=== PATIENT | male | born 1970 | race Caucasian/White ===

== ENCOUNTER 2017-05-18 23:06 | Emergency (ER) | payer MEDICAID ==
[~2017-05-18] VITALS: Ht 180.3 cm; Wt 90.7 kg
[2017-05-18 23:12] VITALS: BP 144/96
== END 2017-05-19 01:35 | disposition left against medical advice (07) ==
LOC: ER 23:09
DX: R05 Cough (principal); R50.9 Fever, unspecified; Z53.21 Procedure and treatment not carried out due to patient leaving prior to being seen by health care provider

== ENCOUNTER 2018-07-08 13:49 | Emergency (ER) | payer MEDICAID ==
[~2018-07-08] VITALS: Ht 182.9 cm; Wt 99.8 kg
[2018-07-08 14:00] VITALS: BP 149/87
== END 2018-07-08 14:29 | disposition left against medical advice (07) ==
LOC: EDBD 13:49 → ER 13:50
DX: R51 Headache (principal); Z53.21 Procedure and treatment not carried out due to patient leaving prior to being seen by health care provider

== ENCOUNTER 2024-03-16 20:20 | Inpatient (IN) | payer MEDICAID ==
[~2024-03-16] VITALS: Ht 180.3 cm; Wt 93.6 kg
--- NOTE | 2024-03-16 20:36 | ED.PDOC ---
SOB-HPI HPI Comments 53 year old male JULI presents to the ED with chief complaint of SOB. Patient reports that he has been smelting "rocks" that contain Palladium in them for the past 2 weeks, noting that the byproduct of doing so is lead and cyanide smoke, noting that he does not have a mask on when performing this. Patient relays that he did not smelt any rocks today, but started to experience SOB with associated muscle locking, making it difficult to stop flexing his hands and arms. EMS states patient's face is very red, diaphoretic and patient had a high BP and heart rate. EMS notes they provided the patient a DuoNeb treatment with improvement of patient's BP and HR, however, patient still had wheezing and had an O2 saturation of 100%. Patient denies any chest pain, cough, dizziness, headache, N/V, or LOC. Chief Complaint: Shortness of Breath Time Seen by MD: 20:31 Reviewed notes: Nurses Notes, Plasterer Maintenance Notes, Medications, Allergies Information Source: Patient, Emergency Med Personnel Mode of Arrival: EMS Severity: Moderate Timing: Hours Duration: Since onset Context: At Rest PE Risk Factors: None History of: None Prehospital treatment: Breathing Tx Modifying Factors: Nothing Past Medical History PAST MEDICAL HISTORY: Anxiety Surgical History: Denies all surgeries Family History Family History: Reviewed,noncontributory to illness Social History Smoker: Cigarettes, Less Than 1 Pack/Day Alcohol: Denies ETOH Use Drugs: Denies Drug Use Lives In: Home Constitutional: denies: chills, diaphoresis, fatigue, fever, malaise, sweats, weakness, others EENTM: denies: blurred vision, double vision, ear bleeding, ear discharge, ear drainage, ear pain, ear ringing, eye pain, eye redness, hearing loss, mouth pain, mouth swelling, nasal discharge, nose bleeding, nose congestion, nose pain, photophobia, tearing, throat pain, throat swelling, voice changes, others Respiratory: reports: shortness of breath; denies: cough, hemoptysis, orthopne a, SOB at rest, SOB with excertion, stridor, wheezing, others Cardiovascular: denies: chest pain, dizzy spells, diaphoresis, Dyspnea on exertion, edema, irregular heart beat, left arm pain, lightheadedness, palpitations, PND, syncope, others Gastrointestinal: denies: abdomen distended, abdominal pain, blood streaked bowels, constipated, diarrhea, dysphagia, difficulty swallowing, hematemesis, melena, nausea, poor appetite, poor fluid intake, rectal bleeding, rectal pain, vomiting, others Genitourinary: denies: burning, dysuria, flank pain, frequency, hematuria, incontinence, penile discharge, penile sore, pain, testicle pain, testicle swelling, urgency, others Neurological: denies: dizziness, fainting, headache, left sided numbness, left sided weakness, numbness, paresthesia, pre-existing deficit, right sided numbness, right sided weakness, seizure, speech problems, tingling, tremors, weakness, others Musculoskeletal: reports: others (Muscle locking); denies: back pain, gout, joint pain, joint swelling, muscle pain, muscle stiffness, neck pain Integumetry: denies: bruises, change in color, change in hair/nails, dryness, laceration, lesions, lumps, rash, wounds, others Allergic/Immunocompromised: denies: Difficulty Healing, Frequent Infections, Hives, Itching, others Hematologic/Lymphatic: denies: anemia, blood clots, easy bleeding, easy bruising, swollen glands, others Endocrine: denies: excessive hunger, excessive sweating, excessive thirst, excessive urination, flushing, intolerance to cold, intolerance to heat, unexplained weight gain, unexplained weight loss, others Psychiatric: denies: anxiety, bipolar disorder, depression, hopeless, panic disorder, schizophrenia, sleepless, suicidal, others All Other Systems: Reviewed and Negative Physical Exam General Appearance: No Apparent Distress, Normal, Other (Flush face) HEENT: Normal ENT Inspection, PERRL/EOMI, Pharynx Normal, TMs Normal Neck: Full Range of Motion, Non-Tender, Normal, Normal Inspection Respiratory: Chest Non-Tender, Lungs Clear, No Accessory Muscle Use, Other (Tachypneic with coarse breath sounds) Cardiovascular: No Edema, No JVD, No Murmur, No Gallop, Normal Peripheral Pu lses, Tachycardia Breast Exam: Deferred Gastrointestinal: No Organomegaly, Non Tender, No Pulsatile Mass, Normal Bowel Sounds, Soft Genitalia: Deferred Pelvic: Deferred Rectal: Deferred Extremities: No calf tenderness, Normal capillary refill, Normal inspection, Normal range of motion, Non-tender, No pedal edema Musculoskeletal : Apperance: Normal Neurologic: Alert, 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 Was a procedure done?: No Differential Dx Differential Diagnosis: Anxiety, Asthma, COPD, Hypertension, Myocardial infarction, Pneumonia, Pharyngitis X-Ray, Labs, Meds, VS Vital Signs Date Time Temp Pulse Resp B/P (MAP) Pulse Ox O2 Delivery O2 Flow Rate FiO2 03/16/24 21:14 109 25 97 Room Air* 0 21 03/16/24 20:36 114 03/16/24 20:34 98.8 109 25 149/95 (113) 97 98.8 03/16/24 20:29 97.3 113 30 153/99 (117) 98 Lab Test 03/16/24 21:57 03/16/24 20:39 03/16/24 20:33 Range/Units Troponin I High Sensitivity Pending < 3 L </=54 ng/L Blood Gas Specimen Type Arterial Blood Gas Sample Site Right radial Blood Gas Patient Temperature 37.0 Arterial Blood Date Drawn [id number] Arterial Blood pH 7.426 7.350-7.450 Arterial Blood Partial Pressure CO2 33.0 L 35.0-48.0 mmHg Arterial Blood Partial Pressure O2 66.7 L 83.0-108.0 mmHg Arterial Blood HCO3 21.2 21.0-28.0 mmol/L Arterial Blood Oxygen Saturation 94.2 94.0-98.0 % Arterial Blood Base Excess -2.2 L -2.0-3.0 mmol/L Arterial Blood Oxyhemoglobin 91.9 L 94.0-98.0 % Arterial Blood Carboxyhemoglobin 2.0 H 0.5-1.5 % Arterial Blood Methemoglobin 0.4 0.0-1.5 % Willy Test Yes Blood Gas Total Hemoglobin 15.30 13.5-17.5 g/dL Blood Gas Modality Room air FiO2 % 21.0 White Blood Count 11.7 H 4.4-10.8 10^3/uL Red Blood Count 5.21 4.5-5.90 10^6/uL Hemoglobin 14.7 13.5-17.5 g/dL Hematocrit 44.2 41.0-53.0 % Mean Corpuscular Volume 84.9 80.0-100.0 fL Mean Corpuscular Hemoglobin 28.3 28.0-32.0 pg Mean Corpuscular Hemoglobin Concent 33.3 32.0-36.0 g/dL Red Cell Distribution Width 13.1 11.8-14.3 % Platelet Count 223 140-450 10^3/uL Mean Platelet Volume 8.4 6.9-10.8 fL Neutrophils (%) (Auto) 37.0-80.0 % Lymphocytes (%) (Auto) 10.0-50.0 % Monocytes (%) (Auto) 0.0-12.0 % Basophils (%) (Auto) 0.0-2.0 % Neutrophils # (Auto) 1.6-8.6 10 ^3/uL Lymphocytes # (Auto) 0.4-5.4 10 ^3/uL Monocytes # (Auto) 0-1.3 10 ^3/uL Differential Total Cells Counted Pending Neutrophils % (Manual) Pending Band Neutrophils % (Manual) Pending Lymphocytes % (Manual) Pending Monocytes % (Manual) Pending Eosinophils % (Manual) Pending Basophils % (Manual) Pending Metamyelocytes % (manual) Pending Myelocytes % (Manual) Pending Promyelocytes % (Manual) Pending Blast Cells % (Manual) Pending Reactive Lymphocytes Pending Platelet Estimate Pending Sodium Level 136 136-145 mmol/L Potassium Level 4.2 3.5-5.1 mmol/L Chloride Level 102 98-107 mmol/L Carbon Dioxide Level 28 20-31 mmol/L Anion Gap 6 5-15 Blood Urea Nitrogen 13 9-23 mg/dL Creatinine 1.11 0.700-1.30 mg/dL Glomerular Filtration Rate Calc 79 >90 mL/min BUN/Creatinine Ratio 11.7 10.0-20.0 Serum Glucose 171 H 74-106 mg/dL Lactic Acid Level 1.9 0.4-2.0 mmol/L Calcium Level 9.6 8.7-10.4 mg/dL Total Bilirubin 0.7 0.2-1.0 mg/dL Aspartate Amino Transferase (AST) 20 13-40 U/L Alanine Aminotransferase (ALT) 28 7-40 U/L Alkaline Phosphatase 108 46-116 U/L B-Type Natriuretic Peptide 7.26 0-100 pg/mL Total Protein 7.1 5.7-8.2 g/dL Albumin 4.3 3.2-4.8 g/dL Chest XR: FINDINGS: Lines and Tubes: None Lungs: Subtle opacity in the right lower lobe. Pleura: No effusion. No pneumothorax. Cardiomediastinal contours: Unremarkable Bones: Unremarkable IMPRESSION: Subtle opacity in the right lower lobe may represent atelectasis or developing pneumonia. Clinical correlation advised. Images Reviewed?: Images reviewed and evaluated by me Time of 1ST Reevaluation: 21:31 Reevaluation 1ST: Unchanged Patient Education/Counseling: Diagnosis, Treatment Family Education/Counseling: No Family Present Departure 1 Departure Time of Disposition: 22:00 (Patient presented with acute shortness of breath concerning for ACS, a COPD Exacerbation, Pneumonia, ACS, CHF, Pneumothorax. Less likely PE, Dissection. Data: 1. I ordered and reviewed the result of at least 3 labs including a CBC, BMP, and Troponin. 2. I independently interpreted the following tests: Chest X-ray shows pneumonia .Risk:This patient has a high risk of morbidity due to further diagnostic testing or treatment and may suffer from respiratory or cardiac etiology . Workup reveals a likely COPD Exacerbation and patient should be admitted for further workup. and possible expert consultation.) Impression: Primary Impression: Right lower lobe pneumonia Qualified Codes: J18.9 - Pneumonia, unspecified organism Additional Impressions: Shortness of breath Inhalation of gaseous substance Qualified Codes: T59.91XA - Toxic effect of unspecified gases, fumes and vapors, accidental (unintentional), initial encounter Chest pain Qualified Codes: R07.89 - Other chest pain Polysubstance abuse Disposition: ADMITTED INPATIENT Admit to: Med Surg Condition: Serious Critical Care Note Critical Care Time?: Yes Critical care comment: Acute shortness of breath Authorized and Performed by: Isaias Baca MD Total critical care time: Approximately 38 minutes Due to a high probability of clinically significant, life threatening deterioration, the patient required my highest level of preparedness to interven e emergently and I personally spent this critical care time directly and personally managing the patient. This critical care time included obtaining a history; examining the patient; pulse oximetry; ordering and review of studies; arranging urgent treatment with development of a management plan; evaluation of patient's response to treatment; frequent reassessment; and, discussions with other providers. This critical care time was performed to assess and manage the high probability of imminent, life-threatening deterioration that could result in multi-organ failure. It was exclusive of separately billable procedures and treating other patients and teaching time. Please see my other sections and the rest of the note for further information on patient assessment and treatment. Stability Stability form required: No Heart Score Heart Score: Heart Score Response (Comments) Value History N/A 0 EKG N/A 0 Age N/A 0 Risk Factors N/A 0 Troponin N/A 0 Total 0 I personally scribed for ISAIAS BACA MD ([email or web address]) on 03/16/24 at 20:36. Elect ronically submitted by Lamberto Lorenzo ([email or web address]). I personally scribed for ISAIAS BACA MD ([email or web address]) on 03/16/24 at 21:20. Elec tronically submitted by Lamberto Lorenzo ([email or web address]). ISAIAS BACA MD Mar 16, 2024 20:36
[2024-03-16 20:43] LABS: Base Excess -2.2 mmol/L (-2.0-3.0)
[2024-03-16] MEDS: CYANOCOBALAMIN (B-12) 1000 MCG/1 ML VIAL IM ONE (20:50)
[2024-03-16 20:52] LABS: Hematocrit 44.2 % (41.0-53.0); Hemoglobin 14.7 g/dL (13.5-17.5); Mean Corpuscular Hemoglobin 28.3 pg (28.0-32.0); Mean Corpuscular Hgb Conc. 33.3 g/dL (32.0-36.0); Mean Corpuscular Volume 84.9 fL (80.0-100.0); Platelet Count (auto) 223 10^3/uL (140-450); Red Blood Cells 5.21 10^6/uL (4.5-5.90); Red Cell Distribution Width 13.1 % (11.8-14.3); White Blood Cell 11.7 10^3/uL (4.4-10.8)
[2024-03-16 20:55] LABS: Basophils % (manual) 0 (0.0-2.0); Blast Cells 0; Metamyelocytes % 0; Myelocytes % 0; Promyelocytes % 0; Reactive Lymphocytes 0
[2024-03-16 21:12] LABS: Alanine Aminotransferase 28 U/L (7-40); Albumin 4.3 g/dL (3.2-4.8); Alkaline Phosphatase 108 U/L (46-116); Anion Gap 6 (5-15); Aspartate Aminotransferase 20 U/L (13-40); BUN/Creatinine Ratio 11.7 (10.0-20.0); Blood Urea Nitrogen 13 mg/dL (9-23); Calcium 9.6 mg/dL (8.7-10.4); Carbon Dioxide 28 mmol/L (20-31); Chloride 102 mmol/L (98-107); Glucose 171 mg/dL (74-106); Potassium 4.2 mmol/L (3.5-5.1); Sodium 136 mmol/L (136-145)
[2024-03-16 21:13] LABS: Bilirubin, Total 0.7 mg/dL (0.2-1.0); Total Protein 7.1 g/dL (5.7-8.2)
[2024-03-16 21:14] VITALS: PULSE 109; RESP 25; O2SAT 97
--- NOTE | 2024-03-16 21:14 | DVH ---
CHEST RADIOGRAPH Indication:sob Technique: Single frontal view of the chest was obtained COMPARISON: None FINDINGS: Lines and Tubes: None Lungs: Subtle opacity in the right lower lobe. Pleura: No effusion. No pneumothorax. Cardiomediastinal contours: Unremarkable Bones: Unremarkable IMPRESSION: Subtle opacity in the right lower lobe may represent atelectasis or developing pneumonia. Clinical co rrelation advised.
[2024-03-16] MEDS ORDERED: CEFEPIME 2GM/50ML NS 50 ML IV ONE (21:30)
[2024-03-16] MEDS ORDERED: ALBUTEROL SULF 2.5 MG/0.5ML(0.5%) NEB SOLN NEB PRN (22:15)
[2024-03-16] MEDS ORDERED: NITROGLYCERIN 0.4 MG SL TAB SL PRN (22:15)
[2024-03-16] MEDS ORDERED: TEMAZEPAM 15 MG CAP PO PRN (22:15)
[2024-03-16] MEDS ORDERED: MORPHINE SULFATE INJ 2 MG/ml SYRG IV PRN (22:15)
[2024-03-16] MEDS ORDERED: ONDANSETRON HCL 4 MG/2 ML VIAL IV PRN (22:15)
--- NOTE | 2024-03-16 22:18 | DVHHP2 ---
History of Present Illness Reason for Visit: Shortness of breath History of Present Illness 53-year-old male presents for evaluation of shortness of breath. Patient reports worsening shortness of breath over the past two days. He states that over the past two weeks he has been working with melting metal continue palladium and has not been wearing a protective mask. He states that over the past two days he has become short of breath with a nonproductive cough. Reports occasional palpitations. No other acute complaints reported. Past Medical History Anxiety Past Surgical History Denies Family History Noncontributory Smoke: <1 pack per day ALCOHOL: occassional Drugs: Other (Methamphetamine) Lives: Alone Review of Systems Review of Systems Review of systems are currently negative otherwise addressed in HPI. Allergies: Coded Allergies: NO KNOWN ALLERGIES (Unverified , 05/18/17) Exam Vital Signs Vital Signs Date Time Temp Pulse Resp B/P (MAP) Pulse Ox O2 Delivery O2 Flow Rate FiO2 03/16/24 21:14 109 25 97 Room Air* 0 21 03/16/24 20:34 98.8 149/95 (113) 98.8 Exam Gen: 53-year-old male in mild distress Skin: Warm, dry, normal color and texture, no rash. HEENT: Normocephalic atraumatic, mucous membranes moist and pink. Neck: Cervical and supraclavicular nodes normal without enlargement, trachea is midline, thyroid gland is normal without masses. Pulmonary: Diminished breath sounds bilaterally Cardiac: Regular rate and rhythm. No murmur Abdomen: Soft, nontender, nondistended, bowel sounds present all 4 quadrants, no guarding, no rigidity, no organomegaly. Extremities: No cyanosis, clubbing, no edema Neuro: Cranial nerves II through XII grossly intact, normal affect and speech, no focal motor deficits. Labs/Xrays ORDERING PHYSICIAN: ISAIAS PRESTON MD PROCEDURE(s): CXRP - CHEST PORTABLE REASON: sob ORDER NUMBER(s): [id number], ACCESSION NUMBER(s): [id number] CHEST RADIOGRAPH Indication:sob Technique: Single frontal view of the chest was obtained COMPARISON: None FINDINGS: Lines and Tubes: None Lungs: Subtle opacity in the right lower lobe. Pleura: No effusion. No pneumothorax. Cardiomediastinal contours: Unremarkable Bones: Unremarkable IMPRESSION: Subtle opacity in the right lower lobe may represent atelectasis or developing pneumonia. Clinical correlation advised. Labs Test 03/16/24 21:57 03/16/24 20:39 03/16/24 20:33 Range/Units Blood Gas Specimen Type Arterial Blood Gas Sample Site Right radial Blood Gas Patient Temperature 37.0 Arterial Blood Date Drawn [id number] Arterial Blood pH 7.426 7.350-7.450 Arterial Blood Partial Pressure CO2 33.0 L 35.0-48.0 mmHg Arterial Blood Partial Pressure O2 66.7 L 83.0-108.0 mmHg Arterial Blood HCO3 21.2 21.0-28.0 mmol/L Arterial Blood Oxygen Saturation 94.2 94.0-98.0 % Arterial Blood Base Excess -2.2 L -2.0-3.0 mmol/L Arterial Blood Oxyhemoglobin 91.9 L 94.0-98.0 % Arterial Blood Carboxyhemoglobin 2.0 H 0.5-1.5 % Arterial Blood Methemoglobin 0.4 0.0-1.5 % Willy Test Yes Blood Gas Total Hemoglobin 15.30 13.5-17.5 g/dL Blood Gas Modality Room air FiO2 % 21.0 White Blood Count 11.7 H 4.4-10.8 10^3/uL Red Blood Count 5.21 4.5-5.90 10^6/uL Hemoglobin 14.7 13.5-17.5 g/dL Hematocrit 44.2 41.0-53.0 % Mean Corpuscular Volume 84.9 80.0-100.0 fL Mean Corpuscular Hemoglobin 28.3 28.0-32.0 pg Mean Corpuscular Hemoglobin Concent 33.3 32.0-36.0 g/dL Red Cell Distribution Width 13.1 11.8-14.3 % Platelet Count 223 140-450 10^3/uL Mean Platelet Volume 8.4 6.9-10.8 fL Neutrophils (%) (Auto) 37.0-80.0 % Lymphocytes (%) (Auto) 10.0-50.0 % Monocytes (%) (Auto) 0.0-12.0 % Basophils (%) (Auto) 0.0-2.0 % Neutrophils # (Auto) 1.6-8.6 10 ^3/uL Lymphocytes # (Auto) 0.4-5.4 10 ^3/uL Monocytes # (Auto) 0-1.3 10 ^3/uL Sodium Level 136 136-145 mmol/L Potassium Level 4.2 3.5-5.1 mmol/L Chloride Level 102 98-107 mmol/L Carbon Dioxide Level 28 20-31 mmol/L Anion Gap 6 5-15 Blood Urea Nitrogen 13 9-23 mg/dL Creatinine 1.11 0.700-1.30 mg/dL Glomerular Filtration Rate Calc 79 >90 mL/min BUN/Creatinine Ratio 11.7 10.0-20.0 Serum Glucose 171 H 74-106 mg/dL Lactic Acid Level 1.9 0.4-2.0 mmol/L Calcium Level 9.6 8.7-10.4 mg/dL Total Bilirubin 0.7 0.2-1.0 mg/dL Aspartate Amino Transferase (AST) 20 13-40 U/L Alanine Aminotransferase (ALT) 28 7-40 U/L Alkaline Phosphatase 108 46-116 U/L B-Type Natriuretic Peptide 7.26 0-100 pg/mL Total Protein 7.1 5.7-8.2 g/dL Albumin 4.3 3.2-4.8 g/dL Assessment/Plan Assessment/Plan Assessment Community-acquired pneumonia Tachycardia Acute respiratory distress Plan Admit the patient to telemetry to the hospitalist Rocephin/azithromycin Med nebs Continue treatment per orders. Plan discussed with: Patient Date of Service: Mar 16, 2024 Billing Provider: ESAU WHALEN Common Visit Codes: [id number] INP/OBS CARE (HIGH) ESAU WHALEN Mar 16, 2024 22:18
[2024-03-16 22:30] VITALS: BP 149/95; PULSE 109; RESP 25; TEMP 98.8; O2SAT 97
[2024-03-16 22:30] LABS: Band Neutrophils % (manual) 8; Eosinophils % (manual) 2 (0-7); Lymphocytes % (manual) 5 (10.0-50.0); Monocytes % (manual) 3 (0-12)
[2024-03-16 22:31] LABS: Platelet Estimate Adequate; RBC Morphology Normal
[2024-03-16] MEDS: CEFEPIME 2GM/50ML NS 50 ML IV ONE (22:55)
[2024-03-16] MEDS: SODIUM CHLORIDE 0.9% 1,000 ML IV ONE (22:55)
[2024-03-16] MEDS: AZITHROMYCIN 250 MG TAB PO ONE (22:55)
[2024-03-16] MEDS: VANCOMYCIN 1GM/200ML PREMIX 200 ML IV ONE (23:01)
[2024-03-17] VITALS (10 sets, daily range): BP systolic 124–165; BP diastolic 80–100; PULSE 80–115; RESP 17–21; TEMP 97.6–98.1; O2SAT 96–100
[2024-03-17] MEDS ORDERED: IBUP200C3 PO (03:48)
--- NOTE | 2024-03-17 05:52 | ECG ---
[facility] Test Date: 2024-03-16 Test Time: 20:36:07 Pat Name: [address] Department: ED Room: 0245T A Gender: M [employer] Conveyor Operator: WEN : 1970 Requested By: ISAIAS PRESTON Order Number: [id number] Reading MD: Fernando Eddy Measurements Intervals [place] Rate: 114 P: 55 AR: 138 QRS: 51 QRSD: 86 T: 71 QT: 339 QTc: 467 Interpretive Statements Sinus tachycardia Consider anterior infarct Electronically Signed On 03-18-2024 14:56:06 PDT by Fernando Eddy Please click the below link to view image of tracing.
[2024-03-17 06:32] LABS: Anion Gap 6 (5-15); Carbon Dioxide 27 mmol/L (20-31); Chloride 106 mmol/L (98-107); Potassium 4.3 mmol/L (3.5-5.1); Sodium 139 mmol/L (136-145)
[2024-03-17 06:33] LABS: Calcium 9.2 mg/dL (8.7-10.4)
[2024-03-17 06:38] LABS: BUN/Creatinine Ratio 11.8 (10.0-20.0); Blood Urea Nitrogen 13 mg/dL (9-23); Glucose 145 mg/dL (74-106)
--- NOTE | 2024-03-17 07:14 | ECG ---
[facility] Test Date: 2024-03-16 Test Time: 21:35:45 Pat Name: [address] Department: ED Room: 0245T A Gender: M Director Pediatric: WEN : 1970 Requested By: ISAIAS PRESTON Order Number: [id number] Reading MD: Fernando Eddy Measurements Intervals [place] Rate: 101 P: 46 [place]: 138 QRS: 41 QRSD: 93 T: 63 QT: 360 QTc: 467 Interpretive Statements Sinus tachycardia Electronically Signed On 03-18-2024 14:56:11 PDT by Fernando Eddy Please click the below link to view image of tracing.
[2024-03-17] MEDS: cefTRIAXone 1GM/50ML D5W 50 ML IV SCH (09:59)
[2024-03-17] MEDS: AZITHROMYCIN 500MG/ 250ML 250 ML IV SCH (11:32)
[2024-03-17] MEDS: ACETAMINOPHEN 325 MG TAB PO PRN (11:33)
--- NOTE | 2024-03-17 11:51 | DVHPN2 ---
Subjective 53-year-old male with no significant past medical history admitted for shortness of breath. Reported has been smelling heavy metals at home. Denies using any respirator. No recent fever, chills, cough. Reviewed: Care Plan, H&P, Labs, Medications, Previous Orders, Radiology Changes from previous H/P or p: No Changes Objective Vitals Vital Signs Date Time Temp Pulse Resp B/P (MAP) Pulse Ox O2 Delivery O2 Flow Rate FiO2 03/17/24 09:00 97.9 89 21 165/93 (117) 99 97.9 03/17/24 08:50 Room Air* 0 21 Intake/Output Intake and Output 03/17/24 07:00 Intake Total 1200 ml Balance 1200 ml Intake IV Total 1200 ml Exam Alert, oriented x3 Coarse voice, no stridor Clear oral cavity Increased work of breathing PERRLA No JVD Clear breath sounds bilaterally S1-S2 regular rate and rhythm no murmur Abdomen soft nontender Equal strength bilaterally on upper and lower extremities No lower extremity edema Medications Current Medications Medications Dose Ordered Sig/Romana Route Start Time Stop Time Status Last Admin Dose Admin Ceftriaxone Sodium 50 ml @ 100 mls/hr DAILY@09 IV 03/17/24 09:00 03/17/24 09:59 100 MLS/HR Azithromycin 250 ml @ 125 mls/hr DAILY IV 03/17/24 10:00 03/17/24 11:32 125 MLS/HR Albuterol 2.5 mg Q6HPRN PRN NEB 03/16/24 22:15 Temazepam 15 mg QHSP PRN PO 03/16/24 22:15 Ondansetron HCl 4 mg Q4HP PRN IV 03/16/24 22:15 Acetaminophen 650 mg Q6HP PRN PO 03/16/24 22:15 03/17/24 11:33 650 MG Nitroglycerin 0.4 mg Q5MINP PRN SL 03/16/24 22:15 Morphine Sulfate 2 mg Q30M PRN IV 03/16/24 22:15 Laboratory Results Laboratory Tests 03/16/24 20:33 03/17/24 05:45 Chemistry Test 03/16/24 20:33 03/17/24 05:45 Albumin 4.3 g/dL (3.2-4.8) Calcium Level 9.6 mg/dL (8.7-10.4) 9.2 mg/dL (8.7-10.4) Total Protein 7.1 g/dL (5.7-8.2) Cardiac Markers Test 03/16/24 20:33 B-Type Natriuretic Peptide 7.26 pg/mL (0-100) LFT Test 03/16/24 20:33 Alanine Aminotransferase (ALT) 28 U/L (7-40) Alkaline Phosphatase 108 U/L (46-116) Aspartate Amino Transferase (AST) 20 U/L (13-40) Total Bilirubin 0.7 mg/dL (0.2-1.0) Blood Gas Results Test 03/16/24 20:39 Arterial Blood pH 7.426 (7.350-7.450) FiO2 % 21.0 Labs and/or images reviewed: Labs reviewed by me, Image(s) reviewed by me Assessment/Plan Assessment/Plan Possible toxic/heavy metal fume inhalation Possible pneumonia, likely community-acquired Possible pneumonitis Continue ceftriaxone and azithromycin Oxygen supplementation to maintain 99% SpO2 Obtain chest CT, sputum culture, MRSA swab Low PSA score, however as patient has possible toxic heavy metal fume inhalation, we will keep for monitoring Airway watch Diet, regular DVT prophylaxis ambulatory Plan discussed with: Patient My Orders Orders - ROSAS SMALL MD Procedure Category Date Status Time Chest Without Contrast CT 03/17/24 Transmitted 11:45 Respiratory Culture KIM 03/17/24 Transmitted W/ Gs 11:45 Mrsa Screen KIM 03/17/24 Transmitted 11:45 Date of Service: Mar 17, 2024 Billing Provider: ROSAS SMALL MD Common Visit Codes: [id number] INP/OBS CARE(HIGH) ORSAS SMALL MD Mar 17, 2024 11:51
--- NOTE | 2024-03-17 13:23 | DVHSR ---
APPROVED REPORT EXAM: Two-dimensional and M-mode echocardiogram with Doppler and color Doppler. Blood Pressure: 124/80 mmHg INDICATION EF RISK FACTORS Height: 5' 11", Weight: 203 DIMENSIONS LVDd4.5 (3.8-5.7cm)LA (2D)4.3 (1.9-4.0cm)Aortic Root4.0 (2.0-3.7cm) LVDs3.3 (2.5-4.0cm)LA (MM) (1.9-4.0cm)Aortic Cusp Exc1.9 (1.5-2.0cm) EF (%) 52.0 (55-70%)Rt. Atrium4.0 (1.9-4.0cm)Asc. Aorta cm IVSd1.0 (0.7-1.1cm)RV (D) (1.8-2.4cm) PWd1.0 (0.7-1.1cm) Mitral Valve MitralMitral Stenosis E wave0.80m/sMV Mean GR.mmHg A wave0.90m/sMV Peak GR.mmHg E/A ratio0.92D MVAcm2 Aortic Valve Aortic ValveAortic Stenosis V10.80m/Slim Mean GR.3mmHg V21.10m/Slim Peak GR.5mmHg LVOT Diameter2.3 (1.8-2.4cm)Doppler AVA3.02cm2 Pulmonic Valve V20.60m/s Conclusion Normal left ventricular size and dimension. Normal left ventricular systolic function estimated ejec tion fraction 55%. There is a grade 1 diastolic dysfunction. Normal normal right ventricular size and dimension. Normal right ventricular systolic function. Normal biatrial size and dimension. Normal aortic valve structure function. Normal mitral valve structure and function. Normal tricuspid valve structure and function. The pulmonary valve is grossly normal. No pericardial effusion.
--- NOTE | 2024-03-17 14:19 | DVH ---
CT CHEST WITHOUT CONTRAST INDICATION: : 53 old Male inhalation EXAM DATE: 03/17/2024 01:33 PM COMPARISON: None RADIATION DOSE: CTDIvol: 15.57 mGy, DLP: 568.62 mGy*cm PROCEDURE: Helical CT images were obtained of the chest without intravenous contrast. Sagittal and c oronal reconstructions are provided. ADDITIONAL IMAGES / REFORMATS: None All CT scans at this medical facility are performed using dose modulation techniques as appropriate t o a performed exam including the following: Automated exposure control was utilized; adjustment of th e MA and/or KV according to patient size; and use of iterative reconstruction technique. FINDINGS: Bones: Scattered degenerative changes are noted. Visualized Abdomen: Liver is low in attenuation. Chest Wall: Normal. Soft tissues: Normal. Mediastinum: Normal. Heart: Coronary artery calcifications are noted. Vessels: Normal. Lymph Nodes: Normal. Pleura: Normal. Airways: Normal. Lung: Normal. Other: None IMPRESSION: No acute intrathoracic abnormality. Mild hepatic steatosis.
[2024-03-17] MEDS: cloNIDine HCL 0.1 MG TAB PO PRN (20:49)
[2024-03-18] VITALS (7 sets, daily range): BP systolic 140–157; BP diastolic 96–104; PULSE 80–103; RESP 18; TEMP 97.6–98.2; O2SAT 95–98
[2024-03-18 06:20] LABS: Basophils # (auto) 0.1 10 ^3/uL (0-0.2); Eosinophils # (auto) 0.2 10 ^3/uL (0-0.8); Eosinophils % (auto) 3.3 % (0.0-7.0); Hematocrit 46.3 % (41.0-53.0); Hemoglobin 15.7 g/dL (13.5-17.5); Lymphocytes # (auto) 1.8 10 ^3/uL (0.4-5.4); Lymphocytes % (auto) 23.8 % (10.0-50.0); Mean Corpuscular Hemoglobin 28.6 pg (28.0-32.0); Mean Corpuscular Hgb Conc. 33.9 g/dL (32.0-36.0); Mean Corpuscular Volume 84.3 fL (80.0-100.0); Monocytes % (auto) 13.3 % (0.0-12.0); Neutrophils # (auto) 4.4 10 ^3/uL (1.6-8.6); Neutrophils % (auto) 58.6 % (37.0-80.0); Nucleated Red Blood Cells % 0.1 %; Platelet Count (auto) 254 10^3/uL (140-450); White Blood Cell 7.5 10^3/uL (4.4-10.8)
[2024-03-18 06:35] LABS: Anion Gap 6 (5-15); Carbon Dioxide 29 mmol/L (20-31); Chloride 103 mmol/L (98-107); Potassium 4.3 mmol/L (3.5-5.1); Sodium 138 mmol/L (136-145)
[2024-03-18 06:36] LABS: Calcium 9.8 mg/dL (8.7-10.4)
[2024-03-18 06:41] LABS: BUN/Creatinine Ratio 12.1 (10.0-20.0); Blood Urea Nitrogen 11 mg/dL (9-23); Glucose 125 mg/dL (74-106)
[2024-03-18] MEDS: amLODIPine BESYLATE 5 MG TAB PO SCH (10:00)
[2024-03-18] MEDS ORDERED: ALBUAER3 IN (12:32)
[2024-03-18] MEDS ORDERED: UMEC1INH IN (12:32)
[2024-03-18] MEDS ORDERED: PRED20TA2 PO (12:32)
[2024-03-18] MEDS ORDERED: AML5T PO (12:32)
--- NOTE | 2024-03-18 13:35 | DVHDS2 ---
Discharge Summary Date of Admission Mar 16, 2024 at 22:07 Date of Discharge: Mar 18, 2024 Labs/Diagnostic Data: Laboratory Results Test 03/18/24 05:39 03/16/24 21:57 03/16/24 20:39 03/16/24 20:33 White Blood Count 7.5 10^3/uL (4.4-10.8) Red Blood Count 5.50 10^6/uL (4.5-5.90) Hemoglobin 15.7 g/dL (13.5-17.5) Hematocrit 46.3 % (41.0-53.0) Mean Corpuscular Volume 84.3 fL (80.0-100.0) Mean Corpuscular Hemoglobin 28.6 pg (28.0-32.0) Mean Corpuscular Hemoglobin Concent 33.9 g/dL (32.0-36.0) Red Cell Distribution Width 13.0 % (11.8-14.3) Platelet Count 254 10^3/uL (140-450) Mean Platelet Volume 8.3 fL (6.9-10.8) Neutrophils (%) (Auto) 58.6 % (37.0-80.0) Lymphocytes (%) (Auto) 23.8 % (10.0-50.0) Monocytes (%) (Auto) 13.3 % (0.0-12.0) Eosinophils (%) (Auto) 3.3 % (0.0-7.0) Basophils (%) (Auto) 1.0 % (0.0-2.0) Neutrophils # (Auto) 4.4 10 ^3/uL (1.6-8.6) Lymphocytes # (Auto) 1.8 10 ^3/uL (0.4-5.4) Monocytes # (Auto) 1.0 10 ^3/uL (0-1.3) Eosinophils # (Auto) 0.2 10 ^3/uL (0-0.8) Basophils # (Auto) 0.1 10 ^3/uL (0-0.2) Nucleated Red Blood Cells 0.1 % Sodium Level 138 mmol/L (136-145) Potassium Level 4.3 mmol/L (3.5-5.1) Chloride Level 103 mmol/L (98-107) Carbon Dioxide Level 29 mmol/L (20-31) Anion Gap 6 (5-15) Blood Urea Nitrogen 11 mg/dL (9-23) Creatinine 0.91 mg/dL (0.700-1.30) Glomerular Filtration Rate Calc 101 mL/min (>90) BUN/Creatinine Ratio 12.1 (10.0-20.0) Serum Glucose 125 mg/dL (74-106) Calcium Level 9.8 mg/dL (8.7-10.4) Troponin I High Sensitivity < 3 ng/L (</=54) Blood Gas Specimen Type Arterial Blood Gas Sample Site Right radial Blood Gas Patient Temperature 37.0 Arterial Blood Date Drawn [id number] Arterial Blood pH 7.426 (7.350-7.450) Arterial Blood Partial Pressure CO2 33.0 mmHg (35.0-48.0) Arterial Blood Partial Pressure O2 66.7 mmHg (83.0-108.0) Arterial Blood HCO3 21.2 mmol/L (21.0-28.0) Arterial Blood Oxygen Saturation 94.2 % (94.0-98.0) Arterial Blood Base Excess -2.2 mmol/L (-2.0-3.0) Arterial Blood Oxyhemoglobin 91.9 % (94.0-98.0) Arterial Blood Carboxyhemoglobin 2.0 % (0.5-1.5) Arterial Blood Methemoglobin 0.4 % (0.0-1.5) Willy Test Yes Blood Gas Total Hemoglobin 15.30 g/dL (13.5-17.5) Blood Gas Modality Room air FiO2 % 21.0 Differential Total Cells Counted 100.0 (100) Neutrophils % (Manual) 82 (37.0-80.0) Band Neutrophils % (Manual) 8 Lymphocytes % (Manual) 5 (10.0-50.0) Monocytes % (Manual) 3 (0-12) Eosinophils % (Manual) 2 (0-7) Basophils % (Manual) 0 (0.0-2.0) Metamyelocytes % (manual) 0 Myelocytes % (Manual) 0 Promyelocytes % (Manual) 0 Blast Cells % (Manual) 0 Reactive Lymphocytes 0 Platelet Estimate Adequate Red Blood Cell Morphology Normal Lactic Acid Level 1.9 mmol/L (0.4-2.0) Total Bilirubin 0.7 mg/dL (0.2-1.0) Aspartate Amino Transferase (AST) 20 U/L (13-40) Alanine Aminotransferase (ALT) 28 U/L (7-40) Alkaline Phosphatase 108 U/L (46-116) B-Type Natriuretic Peptide 7.26 pg/mL (0-100) Total Protein 7.1 g/dL (5.7-8.2) Albumin 4.3 g/dL (3.2-4.8) Other Laboratory Tests 03/18/24 05:39 Brief Hx & Hospital Course: 52-year-old male with no significant past medical history admitted for community-acquired pneumonia. Patient started on antibiotics, CT scan done, no overt pneumonia, patient likely has inhalation pneumonitis. Patient also possibly had COPD, however diagnosis can not be established. Patient will be discharged on prednisone and Incruse. No need to complete antibiotic. Patient to follow up with primary care for further workup for COPD, and advised to use respirator as whenever using his kiln at home. I spent about 10 minutes discussing about smoking cessation, patient said he will stop by himself, refused NRT S it makes him itchy and refused nicotine gum Condition at Discharge: Good Final Diagnosis/Problems List Possible inhalation pneumonitis possible COPD smoker Discharge Disposition: Home Discharge Instruct/Medications Diet: Regular Activity: No Restrictions, As Tolerated Follow Up/Referral: please follow up with your primary care to work up for COPD Medications: prednisone for 3 days incruse daily albuterol as needed for SOB 35 Discharge Statement: "Patient was advised to return to the ER or call 911 if any headaches, dizziness, shortness of breath, chest pain, abdominal pain, bleeding, fevers, or worsening of medical condition. Patient was counseled about treatment plan, medications, possible side effects, patientverbalized understanding. All questions were answered to the best of my ability. This discharge took greater then 30 minutes in planning, reviewing documentation, counseling the patient, and discussing with other team members." ASSESSMENT ASSESSMENT Assessment Possible inhalation pneumonitis possible COPD smoker Community-acquired pneumonia ruled out Date of Service: Mar 18, 2024 Billing Provider: ROSAS SMALL MD Common Visit Codes: 23785-GQM/OBS DISCH DAY >30min Secondary Visit Codes: 82069-YTDES CHNG SMOKING >10MIN ROSAS SMALL MD Mar 18, 2024 13:35
== END 2024-03-18 15:26 | disposition home or self-care (01) | DRG 816 ==
LOC: ER 20:20 → EDBD 20:20 → TELE 22:07 → TELE-EAST 03-17 02:30
PROVIDERS: ADMIT Nurse Practitioner; ATTEND Student in an Organized Health Care Education/Training Program
DX: T56.0X1A Toxic effect of lead and its compounds, accidental (unintentional), initial encounter (principal); J68.0 Bronchitis and pneumonitis due to chemicals, gases, fumes and vapors; F17.210 Nicotine dependence, cigarettes, uncomplicated; F19.10 Other psychoactive substance abuse, uncomplicated; F41.9 Anxiety disorder, unspecified
CPT/HCPCS: 36415; 36600; 71045; 71250; 80048; 80053; 82805; 83605; 83880; 84484; 85007; 85025; 85027; 93005; 93306; 99291; G0378; J0692

== ENCOUNTER 2024-10-06 22:57 | Emergency (ER) | payer MEDICAID ==
[~2024-10-06] VITALS: Ht 180.3 cm; Wt 95.5 kg
[~2024-10-06 22:57] MED LIST: ALBUAER3 IN; AML5T PO; IBUP200C3 PO; PRED20TA2 PO; UMEC1INH IN
[2024-10-06 23:00] VITALS: BP 143/93; PULSE 108; RESP 20; TEMP 98; O2SAT 96
--- NOTE | 2024-10-06 23:13 | ED.PDOC ---
GI ASSESSMENT HPI Comments 54 year old male presents to the ED with no prior associations to the c/c of ABD pain. Pt states he is experiencing 8/10 diffuse abd pain that radiated to his flanks for the past 4x days with no alleviating factors at this time. Pt notes of N/and Dark Brown Emesis. As well as bloody /D 1x week ago. Pt is noted to have a LICONA, and a distended Abdomen at this time. Pt has a PHMx of 3 Heart attacks, SHx 3x Hernia repairs, Social Hx of Methamphetamine, and Tobacco use but claims he has since quit 1x week ago. Pt denies any other complications or sick contact that this period in time. Time Seen by MD: 23:06 Reviewed Notes: Nurses Notes, Crayon Painter Notes, Medications, Allergies Allergies: Coded Allergies: Acetaminophen (Verified Allergy, Unknown, 10/06/24) Home Meds Active Scripts Albuterol Sulfate (VENTOLIN MDI) 90 Mcg Ih, 90 MCG IN Q4HP PRN for 30 Days, #2 INH Prov:ROSAS SMALL MD 03/18/24 Umeclidinium [place] (Incruse Ellipta) 62.5 Mcg/Inh Inh, 62.5 MCG IN DAILY for 30 Days, #30 INHALER Prov:ROSAS SMALL MD 03/18/24 Prednisone (Prednisone) 20 Mg Tab, 40 MG PO DAILY for 3 Days, #6 MG Prov:ROSAS SMALL MD 03/18/24 Amlodipine Besylate (NORVASC TABLET) 5 Mg Tb, 5 MG PO DAILY for 30 Days, #30 TAB Prov:ROSAS SMALL MD 03/18/24 Reported Medications Ibuprofen (Ibuprofen) 200 Mg Cap, 200 MG PO PRN for FOR HEADACHE, MG 03/17/24 Information Source: Patient, Emergency Med Personnel Mode of Arrival: EMS Timing: Days Duration: Since onset, Days Prehospital treatment: None Quality: Aching, Cramping Vomitus: None (Brown) Stool: Normal Severity: Moderate Recent: None Recent Hx of: Abdominal Surgery Pain Location: Diffuse Modifying Factors: Movement Associated sign and symptoms: Nausea, Vomiting, Abdominal Pain Past Medical History PAST MEDICAL HISTORY: Anxiety Past Medical History (Other): Hepatitis B&C Surgical History: Hernia Repair Family History Family History: Reviewed,noncontributory to illness Social History Smoker: Cigarettes, Less Than 1 Pack/Day Alcohol: Denies ETOH Use Drugs: Methamphetamine Lives In: Home Constitutional: denies: chills, diaphoresis, fatigue, fever, malaise, sweats, weakness, others EENTM: denies: blurred vision, double vision, ear bleeding, ear discharge, ear drainage, ear pain, ear ringing, eye pain, eye redness, hearing loss, mouth pain, mouth swelling, nasal discharge, nose bleeding, nose congestion, nose pain, photophobia, tearing, throat pain, throat swelling, voice changes, others Respiratory: denies: cough, hemoptysis, orthopnea, SOB at rest, shortness of breath, SOB with excertion, stridor, wheezing, others Cardiovascular: denies: chest pain, dizzy spells, diaphoresis, Dyspnea on exertion, edema, irregular heart beat, left arm pain, lightheadedness, palpitations, PND, syncope, others Gastrointestinal: reports: abdomen distended, abdominal pain, nausea, vomiting; denies: blood streaked bowels, constipated, diarrhea, dysphagia, difficulty swallowing, hematemesis, melena, poor appetite, poor fluid intake, rectal bleeding, rectal pain, others Genitourinary: denies: burning, dysuria, flank pain, frequency, hematuria, incontinence, penile discharge, penile sore, pain, testicle pain, testicle swelling, urgency, others Neurological: denies: dizziness, fainting, headache, left sided numbness, left sided weakness, numbness, paresthesia, pre-existing deficit, right sided numbness, right sided weakness, seizure, speech problems, tingling, tremors, weakness, others Musculoskeletal: denies: back pain, gout, joint pain, joint swelling, muscle pain, muscle stiffness, neck pain, others Integumetry: denies: bruises, change in color, change in hair/nails, dryness, laceration, lesions, lumps, rash, wounds, others Allergic/Immunocompromised: denies: Difficulty Healing, Frequent Infections, Hives, Itching, others Hematologic/Lymphatic: denies: anemia, blood clots, easy bleeding, easy bruising, swollen glands, others Endocrine: denies: excessive hunger, excessive sweating, excessive thirst, excessive urination, flushing, intolerance to cold, intolerance to heat, unexplained weight gain, unexplained weight loss, others Psychiatric: denies: anxiety, bipolar disorder, depression, hopeless, panic disorder, schizophrenia, sleepless, suicidal, others All Other Systems: Reviewed and Negative Physical Exam General Appearance: Moderate Distress HEENT: Normal ENT Inspection, Pharynx Normal, TMs Normal Neck: Full Range of Motion, Non-Tender, Normal, Normal Inspection Respiratory: Chest Non-Tender, Lungs Clear, No Accessory Muscle Use, No Respira tory Distress, Normal Breath Sounds Cardiovascular: No Edema, No JVD, No Murmur, No Gallop, Normal Peripheral Pulses, Regular Rate/Rhythm Breast Exam: Deferred Gastrointestinal: Diffuse, Distended, Soft, Tenderness Genitalia: Deferred Pelvic: Deferred Rectal: Deferred Extremities: No calf tenderness, Normal capillary refill, Normal inspection, Normal range of motion, Non-tender, No pedal edema Musculoskeletal : Apperance: Normal Neurologic: Alert, software development specialist II-XII nml as Tested, No Motor Deficits, Normal Affect, Normal Mood, No Sensory Deficits Cerebellar Function: Normal Reflexes: Normal Skin: Dry, Normal Color, Warm Lymphatic: No Adenopathy Was a procedure done? Was a procedure done?: No GI differential Dx Differential Diagnosis: Appendicitis, Bowel Obstruction, Cholangitis, Cholecystitis, Constipation, Gastritis/PUD, Gastroenteritis, Dehydration, Other X-Ray, Labs, Meds, VS Vital Signs Date Time Temp Pulse Resp B/P (MAP) Pulse Ox O2 Delivery O2 Flow Rate FiO2 10/06/24 23:00 98.0 108 20 143/93 (110) 96 98.0 10/06/24 22:58 104 Lab Test 10/06/24 23:20 Range/Units White Blood Count 8.3 4.4-10.8 10^3/uL Red Blood Count 5.79 4.5-5.90 10^6/uL Hemoglobin 16.2 13.5-17.5 g/dL Hematocrit 47.5 41.0-53.0 % Mean Corpuscular Volume 82.2 80.0-100.0 fL Mean Corpuscular Hemoglobin 28.0 28.0-32.0 pg Mean Corpuscular Hemoglobin Concent 34.1 32.0-36.0 g/dL Red Cell Distribution Width 13.5 11.8-14.3 % Platelet Count 243 140-450 10^3/uL Mean Platelet Volume 8.3 6.9-10.8 fL Neutrophils (%) (Auto) 77.4 37.0-80.0 % Lymphocytes (%) (Auto) 11.0 10.0-50.0 % Monocytes (%) (Auto) 10.6 0.0-12.0 % Eosinophils (%) (Auto) 0.5 0.0-7.0 % Basophils (%) (Auto) 0.5 0.0-2.0 % Neutrophils # (Auto) 6.4 1.6-8.6 10 ^3/uL Lymphocytes # (Auto) 0.9 0.4-5.4 10 ^3/uL Monocytes # (Auto) 0.9 0-1.3 10 ^3/uL Eosinophils # (Auto) 0 0-0.8 10 ^3/uL Basophils # (Auto) 0 0-0.2 10 ^3/uL Nucleated Red Blood Cells 0.2 % Prothrombin Time 10.9 9.3-11.8 sec Prothrombin Time INR 1.03 0.9-1.15 Activated Partial Thromboplast Time 27.5 24.5-34.5 SEC Sodium Level 134 L 136-145 mmol/L Potassium Level 3.9 3.5-5.1 mmol/L Chloride Level 100 98-107 mmol/L Carbon Dioxide Level 26 20-31 mmol/L Anion Gap 8 5-15 Blood Urea Nitrogen 13 9-23 mg/dL Creatinine 1.07 0.700-1.30 mg/dL Glomerular Filtration Rate Calc 82 >90 mL/min BUN/Creatinine Ratio 12.1 10.0-20.0 Serum Glucose 135 H 74-106 mg/dL Calcium Level 8.5 L 8.7-10.4 mg/dL Total Bilirubin 0.6 0.2-1.0 mg/dL Aspartate Amino Transferase (AST) 17 13-40 U/L Alanine Aminotransferase (ALT) 28 7-40 U/L Alkaline Phosphatase 108 46-116 U/L Total Protein 6.9 5.7-8.2 g/dL Albumin 4.3 3.2-4.8 g/dL Lipase 33 12-53 U/L Plasma/Serum Blood Alcohol < 3.0 <10 mg/dL Time of 1ST Reevaluation: 23:37 Reevaluation 1ST: Unchanged Patient Education/Counseling: Diagnosis, Treatment Family Education/Counseling: No Family Present Departure 1 Departure Time of Disposition: 01:30 Impression: Primary Impression: Abdominal pain, acute Disposition: 07 LEFT AWOL/ELOPED Condition: Stable Discharged With: Self Critical Care Note Critical Care Time?: No Stability Stability form required: No I personally scribed for ALIS BALL MD ([email or web address]) on 10/06/24 at 23:12. Electronically submitted by Itz Schafer ([email or web address]). ALIS BALL MD October 06, 2024 23:12
[2024-10-06] MEDS ORDERED: SODIUM CHLORIDE 0.9% 1,000 ML IVB ONE (23:15)
[2024-10-06] MEDS ORDERED: ONDANSETRON HCL 4 MG/2 ML VIAL IV ONE (23:15)
[2024-10-06] MEDS ORDERED: MORPHINE SULFATE 4 MG/ML SYR/VIAL IV ONE (23:15)
[2024-10-06 23:37] LABS: Basophils # (auto) 0 10 ^3/uL (0-0.2); Basophils % (auto) 0.5 % (0.0-2.0); Eosinophils # (auto) 0 10 ^3/uL (0-0.8); Eosinophils % (auto) 0.5 % (0.0-7.0); Hematocrit 47.5 % (41.0-53.0); Hemoglobin 16.2 g/dL (13.5-17.5); Lymphocytes # (auto) 0.9 10 ^3/uL (0.4-5.4); Mean Corpuscular Hgb Conc. 34.1 g/dL (32.0-36.0); Mean Corpuscular Volume 82.2 fL (80.0-100.0); Monocytes # (auto) 0.9 10 ^3/uL (0-1.3); Monocytes % (auto) 10.6 % (0.0-12.0); Neutrophils # (auto) 6.4 10 ^3/uL (1.6-8.6); Neutrophils % (auto) 77.4 % (37.0-80.0); Nucleated Red Blood Cells % 0.2 %; Platelet Count (auto) 243 10^3/uL (140-450); Red Blood Cells 5.79 10^6/uL (4.5-5.90); Red Cell Distribution Width 13.5 % (11.8-14.3); White Blood Cell 8.3 10^3/uL (4.4-10.8)
[2024-10-06 23:51] LABS: INR 1.03 (0.9-1.15); Partial Thromboplastin Time 27.5 SEC (24.5-34.5); Prothrombin Time 10.9 sec (9.3-11.8)
[2024-10-06 23:53] LABS: Alanine Aminotransferase 28 U/L (7-40); Alkaline Phosphatase 108 U/L (46-116); Anion Gap 8 (5-15); BUN/Creatinine Ratio 12.1 (10.0-20.0); Blood Urea Nitrogen 13 mg/dL (9-23); Carbon Dioxide 26 mmol/L (20-31); Chloride 100 mmol/L (98-107); Lipase 33 U/L (12-53); Potassium 3.9 mmol/L (3.5-5.1); Total Protein 6.9 g/dL (5.7-8.2)
[2024-10-06 23:54] LABS: Albumin 4.3 g/dL (3.2-4.8); Aspartate Aminotransferase 17 U/L (13-40); Bilirubin, Total 0.6 mg/dL (0.2-1.0)
[2024-10-07 00:17] LABS: Calcium 8.5 mg/dL (8.7-10.4); Glucose 135 mg/dL (74-106); Sodium 134 mmol/L (136-145)
[2024-10-07 02:33] LABS: Blood Alcohol < 3.0 mg/dL (<10)
--- NOTE | 2024-10-07 05:26 | ECG ---
[facility] Test Date: 2024-10-06 Test Time: 22:58:50 Pat Name: [address] Department: ED Room: Gender: M Pan Washer Hand: WEN : 1970 Requested By: ALIS BALL Order Number: [id number] Reading MD: Measurements Intervals [place] Rate: 104 P: 52 [place]: 138 QRS: 33 QRSD: 98 T: 71 QT: 357 QTc: 470 Interpretive Statements Sinus tachycardia ST elev, probable normal early repol pattern Please click the below link to view image of tracing.
== END 2024-10-07 04:04 | disposition left against medical advice (07) ==
LOC: EDBD 22:57 → ER 22:57
DX: R10.84 Generalized abdominal pain (principal); F41.9 Anxiety disorder, unspecified; F17.210 Nicotine dependence, cigarettes, uncomplicated; Z98.890 Other specified postprocedural states; Z79.899 Other long term (current) drug therapy; Z88.1 Allergy status to other antibiotic agents
CPT/HCPCS: 36415; 80053; 80320; 83690; 85025; 85610; 85730; 93005